=== PATIENT | female | born 1975 | race American Indian/Alaskan Native ===

== ENCOUNTER 2016-07-29 03:00 | Emergency (ER) | payer OTHER ==
[2016-07-29 03:16] VITALS: BP 119/82
[2016-07-29 06:50] LABS: Bacteria,Urine 1+ /HPF (Negative); Bilirubin,Urine NEG (Negative); Blood,Urine LG (Negative); Ketones,Urine TR mg/dL (Negative); Leukocyte Esterase,Urine LG (Negative); Mucus,Urine 1+ /HPF; Nitrite,Urine NEG (Negative); Urobilinogen,Urine < 2.0 mg/dL (<2.0)
[2016-07-29 06:53] LABS: WBC,Urine > 182.0 /HPF (0.0-6.0)
--- NOTE | 2016-07-29 22:21 | ED Elopement Review ---
ED Pt Elopement review - Results review Lab results: Laboratory Tests 07/29/16 06:18 Urine Color Yellow Urine Turbidity Cloudy Urine pH 6.0 Ur Specific Proctor 1.014 Urine Protein 100 mg/dl Urine Glucose (UA) Neg Urine Ketones Tr Urine Blood Lg Urine Nitrite Neg Ur Reducing Substances Not Reportable Urine Bilirubin Neg Urine Ictotest Not Reportable Urine Urobilinogen < 2.0 Ur Leukocyte Esterase Lg Urine WBC (Auto) > 182.0 H Urine RBC (Auto) 86.0 U Epithel Cells (Auto) 1.0 Urine Bacteria (Auto) 1+ Urine WBC Clumps 3+ Urine Mucus 1+ Urine HCG, Qual Negative - Call Back decision Pt Call Back Decision: Pt to F/U with PMD
== END 2016-07-29 06:27 | disposition left against medical advice (07) ==
LOC: ED 03:00
DX: R10.30 Lower abdominal pain, unspecified (principal); M54.5 Low back pain; R30.0 Dysuria; Z53.21 Procedure and treatment not carried out due to patient leaving prior to being seen by health care provider
CPT/HCPCS: 81001; 81025